=== PATIENT | female | born 1995 | race Caucasian/White ===

== ENCOUNTER 2019-04-14 21:22 | Emergency (ER) | payer BC ==
[~2019-04-14] VITALS: Ht 180.3 cm; Wt 142.4 kg
[~2019-04-14 21:22] MED LIST: IBUP-1542 PO; NPH10OT LEFT EAR; ONDA4TAB8 PO
[2019-04-14 21:28] VITALS: Ht 180.3 cm; Wt 142.4 kg
[2019-04-14] MEDS ORDERED: LACTATED RINGER'S 1,000 ML IV STA (22:33)
[2019-04-14] MEDS ORDERED: ONDANSETRON 4 MG INJ IV STA (22:33)
[2019-04-14] MEDS ORDERED: IBUPROFEN 600 MG TAB PO ONE (23:00)
[2019-04-15 00:45] VITALS: BP 138/89; PULSE 89; RESP 16
== END 2019-04-15 00:50 | disposition home or self-care (01) ==
LOC: E/R 21:22
DX: R50.9 Fever, unspecified (principal); R10.13 Epigastric pain; R11.2 Nausea with vomiting, unspecified
CPT/HCPCS: 36415; 74176; 80053; 81001; 83690; 85025; 87040; 87086; 96374; 99285; J2405; J7120